=== PATIENT | male | born 1950 | race Two or more races ===

== ENCOUNTER 2021-02-19 15:09 | Inpatient (IN) | payer OTHER ==
[~2021-02-19] VITALS: Ht 180.3 cm; Wt 81.6 kg
[2021-02-19] MEDS ORDERED: OXYC1TAB9 (20:11)
[2021-02-19] MEDS ORDERED: DAFLONEX-XL 11300 MG (20:11)
[2021-02-19] MEDS ORDERED: OMEPRAZOLE20 MG (20:11)
[2021-02-19] MEDS ORDERED: CANDESARTAN CIL16 MG (20:12)
[2021-02-19] MEDS ORDERED: SUCRALFATE1 GM/10 ML (20:12)
[2021-02-19] MEDS ORDERED: ROSUVASTATIN CA20 MG (20:12)
[2021-02-22] MEDS ORDERED: HYOSCYAMINE0.125 M1 SL (17:43)
[2021-02-22] MEDS ORDERED: [UNRECOGNIZED DRUG - OTHER] PO (17:44)
[2021-02-22] MEDS ORDERED: ROSUVASTATIN CA20 MG PO (17:45)
[2021-02-22] MEDS ORDERED: CANDESARTAN CIL16 MG PO (17:45)
[2021-02-22] MEDS ORDERED: OXYC1TAB9 PO (17:48)
[2021-02-22] MEDS ORDERED: RESTORIL15 MG PO (17:50)
[2021-02-22] MEDS ORDERED: PROTONIX40 MG PO (17:51)
[2021-02-22] MEDS ORDERED: FAMOTIDINE20 MG/2 M1 PO (17:52)
[2021-02-22] MEDS ORDERED: CARAFATE1 GM PO (17:53)
== END 2021-02-22 18:11 | disposition home or self-care (01) | DRG 812 ==
LOC: SEC-K 15:09 → MEDJ 15:09
PROVIDERS: ADMIT Internal Medicine Hematology & Oncology; ATTEND Internal Medicine Hematology & Oncology
PROC: 30233N1 Transfusion of Nonautologous Red Blood Cells into Peripheral Vein, Percutaneous Approach (ICD-10-PCS; principal; 2021-02-20)
DX: D50.0 Iron deficiency anemia secondary to blood loss (chronic) (principal); C20 Malignant neoplasm of rectum; C18.5 Malignant neoplasm of splenic flexure; C78.00 Secondary malignant neoplasm of unspecified lung; C78.7 Secondary malignant neoplasm of liver and intrahepatic bile duct

== ENCOUNTER 2021-02-28 15:39 | Inpatient (IN) | payer OTHER ==
[~2021-02-28] VITALS: Ht 182.9 cm; Wt 68.0 kg
[~2021-02-28 15:39] MED LIST: CANDESARTAN CIL16 MG; CANDESARTAN CIL16 MG PO; CARAFATE1 GM PO; DAFLONEX-XL 11300 MG; FAMOTIDINE20 MG/2 M1 PO; HYOSCYAMINE0.125 M1 SL; OMEPRAZOLE20 MG; OXYC1TAB9; OXYC1TAB9 PO; PROTONIX40 MG PO; RESTORIL15 MG PO; ROSUVASTATIN CA20 MG; ROSUVASTATIN CA20 MG PO; SUCRALFATE1 GM/10 ML; [UNRECOGNIZED DRUG - OTHER] PO
[2021-03-06] MEDS ORDERED: HYOSCYAMINE0.125 M1 SL (17:00)
[2021-03-06] MEDS ORDERED: ROSUVASTATIN CA20 MG PO (17:01)
[2021-03-06] MEDS ORDERED: CHOLESTYRAMINE P4 GM PO (17:01)
[2021-03-06] MEDS ORDERED: CANDESARTAN CIL16 MG PO (17:01)
[2021-03-06] MEDS ORDERED: OXYC1TAB9 PO (17:02)
[2021-03-06] MEDS ORDERED: RESTORIL15 MG PO (17:02)
[2021-03-06] MEDS ORDERED: FENTANYL1 EAC3 TD (17:03)
[2021-03-06] MEDS ORDERED: ZINC SULFATE50 M1 PO (17:04)
[2021-03-06] MEDS ORDERED: DIPHENOXYLATE-1 EACH PO (17:05)
[2021-03-06] MEDS ORDERED: FAMOTIDINE20 MG/2 M1 PO (17:05)
[2021-03-06] MEDS ORDERED: PROTONIX40 MG PO (17:06)
[2021-03-06] MEDS ORDERED: INTESTINEX680 M1 PO (17:06)
[2021-03-06] MEDS ORDERED: VITAMIN C500 M1 PO (17:08)
[2021-03-06] MEDS ORDERED: PROTEINEX-18 LI30 ML PO (17:08)
[2021-03-06] MEDS ORDERED: SUCRALFATE1 GM/10 ML PO (17:08)
== END 2021-03-06 18:46 | disposition home or self-care (01) | DRG 178 ==
LOC: ER 15:39 → MEDJ 18:04
PROVIDERS: ADMIT Internal Medicine Hematology & Oncology; ATTEND Internal Medicine Hematology & Oncology
PROC: 30233N1 Transfusion of Nonautologous Red Blood Cells into Peripheral Vein, Percutaneous Approach (ICD-10-PCS; principal; 2021-03-01)
PROC: 4A12X4Z Monitoring of Cardiac Electrical Activity, External Approach (ICD-10-PCS; 2021-03-01)
PROC: 8E0ZXY6 Isolation (ICD-10-PCS; 2021-03-01)
DX: U07.1 COVID-19 (principal); K92.2 Gastrointestinal hemorrhage, unspecified; D50.0 Iron deficiency anemia secondary to blood loss (chronic); D63.0 Anemia in neoplastic disease; C18.5 Malignant neoplasm of splenic flexure; C78.00 Secondary malignant neoplasm of unspecified lung

== ENCOUNTER 2021-04-04 11:47 | Inpatient (IN) | payer OTHER ==
[~2021-04-04] VITALS: Ht 180.3 cm; Wt 77.1 kg
[~2021-04-04 11:47] MED LIST changes: +CHOLESTYRAMINE P4 GM PO; +DIPHENOXYLATE-1 EACH PO; +FENTANYL1 EAC3 TD; +INTESTINEX680 M1 PO; +PROTEINEX-18 LI30 ML PO; +SUCRALFATE1 GM/10 ML PO; +VITAMIN C500 M1 PO; +ZINC SULFATE50 M1 PO
[2021-04-04] MEDS ORDERED: PEPCID AC10 MG PO (12:30)
[2021-04-04] MEDS ORDERED: PERCOCET 10-321 EACH PO ×2 (12:30→12:36)
[2021-04-05] MEDS ORDERED: ROSUVASTATIN CA20 MG (11:39)
[2021-04-05] MEDS ORDERED: PANTOPRAZOLE SO40 MG (11:39)
[2021-04-05] MEDS ORDERED: FENTANYL1 EAC5 (11:39)
[2021-04-05] MEDS ORDERED: RESTORIL15 MG (11:39)
[2021-04-05] MEDS ORDERED: AMICAR500 MG (11:40)
[2021-04-05] MEDS ORDERED: DAFLONEX-XL 11300 MG (11:40)
[2021-04-05] MEDS ORDERED: CANDESARTAN CIL16 MG (11:40)
[2021-04-05] MEDS ORDERED: CHOLESTYRAMINE P4 GM (11:40)
[2021-04-10] MEDS ORDERED: HYOSCYAMINE0.125 M1 SL (09:09)
[2021-04-10] MEDS ORDERED: ALPRAZOLAM0.25 MG PO (09:12)
[2021-04-10] MEDS ORDERED: FENTANYL1 EAC5 TOP (09:14)
[2021-04-10] MEDS ORDERED: PERCOCET 10-321 EACH PO (09:15)
[2021-04-10] MEDS ORDERED: RESTORIL15 MG PO (09:16)
[2021-04-10] MEDS ORDERED: FAMOTIDINE20 MG PO (09:17)
[2021-04-10] MEDS ORDERED: METOCLOPRAMIDE10 MG PO (09:18)
[2021-04-10] MEDS ORDERED: DEXAMETHASONE4 MG PO (09:19)
[2021-04-10] MEDS ORDERED: CARAFATE1 GM PO (09:19)
[2021-04-10] MEDS ORDERED: PANTOPRAZOLE SO40 MG PO (09:19)
== END 2021-04-10 14:48 | disposition home or self-care (01) | DRG 377 ==
LOC: ER 11:47 → MEDI 22:20
PROVIDERS: ADMIT Internal Medicine Hematology & Oncology; ATTEND Internal Medicine Hematology & Oncology
PROC: 8E0ZXY6 Isolation (ICD-10-PCS; 2021-04-04)
PROC: 02HV33Z Insertion of Infusion Device into Superior Vena Cava, Percutaneous Approach (ICD-10-PCS; principal; 2021-04-05)
PROC: 30233N1 Transfusion of Nonautologous Red Blood Cells into Peripheral Vein, Percutaneous Approach (ICD-10-PCS; 2021-04-06)
DX: K62.5 Hemorrhage of anus and rectum (principal); I26.99 Other pulmonary embolism without acute cor pulmonale; E46 Unspecified protein-calorie malnutrition; C19 Malignant neoplasm of rectosigmoid junction; C78.02 Secondary malignant neoplasm of left lung; C78.01 Secondary malignant neoplasm of right lung; E86.0 Dehydration; D50.0 Iron deficiency anemia secondary to blood loss (chronic); Z86.16 Personal history of COVID-19